=== PATIENT | female | born 1950 | race Caucasian/White ===

== ENCOUNTER 2017-04-29 13:44 | Observation (INO) ==
[2017-04-29 14:50] LABS: Basophils % 0.4 %; Eosinophils # 0.2 K/mcL (0.0-0.6); Eosinophils % 2.9 %; Hematocrit 44.3 % (35.3-44.9); Hemoglobin 15.1 g/dL (11.5-15.4); Immature Granulocytes % 0.3 % (0-4); Lymphocytes # 1.8 K/mcL (0.6-4.6); Lymphocytes % 25.6 %; Mean Corpuscular HGB Conc 34.1 g/dL (31.6-35.5); Mean Corpuscular Hemoglobin 28.9 pg (28.0-33.3); Mean Corpuscular Volume 84.7 fL (83.0-100.0); Mean Platelet Volume 9.6 fL (9.4-12.4); Monocytes # 0.7 K/mcL (0.0-1.3); Monocytes % 10.7 %; Neutrophils # 4.2 K/mcL (1.6-8.9); Platelet Count 224 K/mcL (140-400); Red Blood Count 5.23 M/mcL (3.82-4.97); Red Cell Distribution Width 13.2 % (11.5-14.5); Segmented Neutrophils % 60.1 %
[2017-04-29 14:56] LABS: Prothrombin Time 10.7 Seconds (9.4-12.1)
[2017-04-29 14:58] LABS: Activated Partial Thrombo Time 28.5 Seconds (26.0-36.0)
[2017-04-29 15:03] LABS: BUN/Creatinine Ratio 22 (6-26); Blood Urea Nitrogen 17 mg/dL (7-20); Carbon Dioxide 26 mEq/L (19-29); Chloride 100 mEq/L (98-109); Glucose 161 mg/dL (70-99); Osmolality,Calculated 287 (280-300); Potassium 4.1 mEq/L (3.5-4.5); Sodium 136 mEq/L (136-145); eGFR For African Americans > 60 (> 60); eGFR For Non-African Americans > 60 (> 60)
--- NOTE | 2017-04-29 15:31 | Emergency Department Note ---
START Narrative - START START: I examined this patient and my medical decision-making was reviewed with the emergency medicine resident. I agree with the documented findings, disposition and treatment plan as described except to the extent set forth below. Patient seen with emergency medicine resident Dr. Sherman Horn, Please see a copy of his note for details of the H&P, ED evaluation, management and disposition. I have independently evaluated the patient and confirmed appropriate portions of the history and physical exam. Briefly: 66-year-old female history quadruple bypass several cardiac stents presents with "total body burning" also some heartburn she does person, chest pain. Pain-free now. EKG shows nonspecific ST-T changes. Negative troponin. Patient was offered admission she accepted awaiting hospitalist call back. Provided 30 minutes of critical care services for this patient. Admission disposition pending
--- NOTE | 2017-04-29 15:33 | Emergency Department Note ---
Disposition Clinical Impression: Chest pain Qualifiers: Chest pain type: unspecified Qualified Code(s): R07.9 - Chest pain, unspecified Disposition: Admitted As Inpatient Condition: Good General Adult HPI - General Chief complaint: ED Chest Pain Stated complaint: CP Time Seen by Provider: 04/29/17 14:58 Source: patient Limitations: no limitations Nursing Notes Reviewed: Yes Vital Signs Reviewed: Yes - History of Present Illness HPI Narrative: 66-year-old female who reports she has had 2-3 days of intermittent feelings of heartburn and nausea. She reports that the last time that she has felt that was when she was having her heart attack. She has had a total of at least 2 heart attacks one of which required a quadruple bypass in the other multiple stents. She had similar symptoms at that time. She reports minimal symptoms right now. She does take aspirin and Plavix. Other medical problems include hypertension, hyperlipidemia, diabetes, hypothyroidism. She is not had a fever or a cough. She is not feeling short of breath. No diaphoresis. Pain Scale: 3 Consistency: intermittent Improves with: nothing Worsens with: nothing Associated symptoms: Reports: denies other symptoms Treatments Prior to Arrival: none - Related Data Home Medications Medication Instructions Recorded Confirmed Alendronate Sodium [Fosamax] 70 mg PO QWEEK 04/29/17 04/29/17 Aspirin Enteric Coated [Aspirin EC] 81 mg PO DAILY 04/29/17 04/29/17 Cholecalciferol (Vitamin D3) 2,000 unit PO DAILY 04/29/17 04/29/17 [Vitamin D] Cinnamon Bark [Cinnamon] 2,000 mg PO BID 04/29/17 04/29/17 Clopidogrel [Plavix] 75 mg PO DAILY 04/29/17 04/29/17 Escitalopram Oxalate 5 mg PO DAILY 04/29/17 04/29/17 Levothyroxine [Synthroid] 112 mcg PO 0630 04/29/17 04/29/17 Lisinopril [Zestril] 20 mg PO BID 04/29/17 04/29/17 Metformin HCl [Metformin HCl ER] 1,000 mg PO BID 04/29/17 04/29/17 Nitroglycerin [Nitrostat] 0.4 mg SL Q5M PRN 04/29/17 04/29/17 Sotalol HCl [Betapace] 120 mg PO Q12H 04/29/17 04/29/17 amLODIPine [Norvasc] 5 mg PO BID 04/29/17 04/29/17 hydroCHLOROthiazide 25 mg PO DAILY 04/29/17 04/29/17 [Hydrochlorothiazide] Allergies Allergy/AdvReac Type Severity Reaction Status Date / Time No Known Allergies Allergy Verified 04/29/17 13:47 All systems ED: reviewed and negative except as stated. Constitutional: Denies: fever ENT ED: Denies: throat pain Cardiovascular: Reports: chest pain Respiratory: Denies: cough, dyspnea Gastrointestinal: Denies: abdominal pain Musculoskeletal: Denies: back pain Integumentary: Denies: rash Neurological: Denies: headache Endocrine: Denies: fatigue Past Medical History - Past Medical History Medical history: Reports: atrial fibrillation, diabetes, hyperlipidemia, hypertension, myocardial infarction, renal disease, thyroid disease, other Psychiatric history: Reports: anxiety, depression - Social History Smoking Status: Never smoker Smokeless Tobacco Status: No Alcohol use: Reports: none Drug use: Reports: none Physical Exam - General Limitations: no limitations General appearance: alert - Head Head exam: atraumatic - Eye Eye exam: Present: normal appearance, PERRL - ENT ENT exam: normal exam, normal oropharynx - Neck Neck exam: Present: normal inspection - Chest Chest inspection: Present: normal inspection - Respiratory Respiratory exam: Present: normal lung sounds bilaterally. Absent: respiratory distress - Cardiovascular Cardiovascular exam: Present: regular rate, normal rhythm - Abdominal Exam Abdominal exam: Present: soft, Non-Tender - Extremities Exam Extremities exam: Present: normal inspection - Neurological Exam Neurological exam: Present: alert, oriented X3 - Psychiatric Psychiatric exam: Present: normal affect, normal mood - Skin Skin exam: Present: warm, dry Course Course Narrative: EKG is normal sinus rhythm without specific ST or T-wave changes. There is no old EKG to compare this to. Lab work and troponin are negative. Due to her symptoms being similar to prior we will go ahead and admit for chest pain rule out. Admitted by Dr Irizarry Vital Signs Temperature 98.5 F 04/29/17 13:46 Pulse Rate 63 04/29/17 13:46 Respiratory Rate 18 04/29/17 13:46 Blood Pressure 185/93 04/29/17 13:46 O2 Sat by Pulse Oximetry 97 04/29/17 13:46 Temperature 98.5 F 04/29/17 13:46 Pulse Rate 61 04/29/17 16:12 Respiratory Rate 14 04/29/17 16:12 Blood Pressure 161/94 04/29/17 16:12 O2 Sat by Pulse Oximetry 97 04/29/17 16:12 Oxygen Delivery Oxygen Delivery Room Air Medical Decision Making - Medical Records Medical records reviewed: Yes I reviewed the patient's medical records. - Lab Data Lab results reviewed: Yes I reviewed the patient's lab results. Result diagrams: 04/29/17 14:42 04/29/17 14:42 Lab Results 04/29/17 04/29/17 04/29/17 Range/Units 14:42 14:42 14:42 WBC 6.9 (4.3-11.1) K/mcL RBC 5.23 H (3.82-4.97) M/mcL Hgb 15.1 (11.5-15.4) g/dL Hct 44.3 (35.3-44.9) % MCV 84.7 (83.0-100.0) fL MCH 28.9 (28.0-33.3) pg MCHC 34.1 (31.6-35.5) g/dL RDW 13.2 (11.5-14.5) % Plt Count 224 (140-400) K/mcL MPV 9.6 (9.4-12.4) fL Immature Gran % 0.3 (0-4) % Seg Neutrophils % 60.1 % Lymphocytes % 25.6 % Monocytes % 10.7 % Eosinophils % 2.9 % Basophils % 0.4 % Neutrophils # 4.2 (1.6-8.9) K/mcL Lymphocytes # 1.8 (0.6-4.6) K/mcL Monocytes # 0.7 (0.0-1.3) K/mcL Eosinophils # 0.2 (0.0-0.6) K/mcL Basophils # 0.0 (0.0-0.2) K/mcL PT 10.7 (9.4-12.1) Seconds INR 1.0 APTT 28.5 (26.0-36.0) Seconds Sodium (136-145) mEq/L Potassium (3.5-4.5) mEq/L Chloride (98-109) mEq/L Carbon Dioxide (19-29) mEq/L BUN (7-20) mg/dL Creatinine (0.57-1.11) mg/dL Est GFR ( Amer) (> 60) Est GFR (Non-Af Amer) (> 60) BUN/Creatinine Ratio (6-26) Glucose (70-99) mg/dL Calculated Osmolality (280-300) Calcium (8.6-10.8) mg/dL Troponin I (0-0.03) ng/mL B-Natriuretic Peptide 199 H (0-100) pg/mL 04/29/17 04/29/17 Range/Units 14:42 14:42 WBC (4.3-11.1) K/mcL RBC (3.82-4.97) M/mcL Hgb (11.5-15.4) g/dL Hct (35.3-44.9) % MCV (83.0-100.0) fL MCH (28.0-33.3) pg MCHC (31.6-35.5) g/dL RDW (11.5-14.5) % Plt Count (140-400) K/mcL MPV (9.4-12.4) fL Immature Gran % (0-4) % Seg Neutrophils % % Lymphocytes % % Monocytes % % Eosinophils % % Basophils % % Neutrophils # (1.6-8.9) K/mcL Lymphocytes # (0.6-4.6) K/mcL Monocytes # (0.0-1.3) K/mcL Eosinophils # (0.0-0.6) K/mcL Basophils # (0.0-0.2) K/mcL PT (9.4-12.1) Seconds INR APTT (26.0-36.0) Seconds Sodium 136 (136-145) mEq/L Potassium 4.1 (3.5-4.5) mEq/L Chloride 100 (98-109) mEq/L Carbon Dioxide 26 (19-29) mEq/L BUN 17 (7-20) mg/dL Creatinine 0.77 (0.57-1.11) mg/dL Est GFR ( Amer) > 60 (> 60) Est GFR (Non-Af Amer) > 60 (> 60) BUN/Creatinine Ratio 22 (6-26) Glucose 161 H (70-99) mg/dL Calculated Osmolality 287 (280-300) Calcium 10.0 (8.6-10.8) mg/dL Troponin I 0.00 (0-0.03) ng/mL B-Natriuretic Peptide (0-100) pg/mL - Radiology Data Radiology results reviewed: Yes I reviewed the patient's radiology results. - EKG Data EKG #1 EKG attestation: Yes I reviewed and interpreted this EKG. EKG shows normal: sinus rhythm Rate: normal Rhythm: NSR Frederic/QRS: normal Interpretation: no acute changes
--- NOTE | 2017-04-29 17:05 | Event Note ---
Date of Encounter: 04/29/17 Time of Encounter: 17:05 Patient seen and examined with nurse practitioner. rule Out coronary syndrome. Initial troponin normal, EKG shows no ST segment shifts.
[2017-04-29] MEDS ORDERED: Ondansetron 4 MG/2 ML VIAL IVP PRN (18:39)
[2017-04-29] MEDS ORDERED: Naloxone 0.4 MG/ML INJ IVP PRN (18:39)
[2017-04-29] MEDS ORDERED: *HR* HYDROcodone/Acet 5/325 mg TABLET PO PRN (18:39)
[2017-04-29] MEDS ORDERED: Acetaminophen 325 MG TABLET PO PRN (18:39)
[2017-04-29] MEDS ORDERED: Nitroglycerin 0.4 MG TAB.SUBL SL PRN (18:42)
[2017-04-29] MEDS ORDERED: D5% in Water 1,000 ML IVC PRN (18:44)
[2017-04-29] MEDS ORDERED: *HR* Dextrose 50 % in Water (Syg) 50 ML SYRINGE IVP PRN (18:44)
[2017-04-29] MEDS ORDERED: Dextrose Gel 15 GM PO PRN ×2 (18:44)
[2017-04-29] MEDS ORDERED: NON-FORMULARY MEDICATION 1 EACH EACH (Alendronate Sodium [Fosamax] 70 MG) PO SCH (18:45)
--- NOTE | 2017-04-29 19:35 | Internal Med History&Physical ---
Date of Encounter: 04/29/17 Time of Encounter: 17:00 Assessment and Plan (1) Chest pain Current visit: Yes Status: Acute Pt. presents w/discomfort in her chest for the past 2-3 days that she describes as a burning sensation down her bilateral arms chest and bilateral legs down to her feet. States she has intermittent feelings of heartburn and nausea as well. She reports similar symptoms during her previous heart attacks. Patient has a history of stents 8, one balloon procedure, and quadruple bypass. Initial troponin 0.00. Trend x2. Continuous cardiac telemetry. Risk factors include hx of atrial fibrillation, diabetes, HLD, HTN, and previous HI. Denies smoking. Echocardiogram ordered. Will consider cardiology consult based on f/u troponins and Echo results. Monitor pt. closely for signs of increasing cardiac and/or respiratory distress. Continue patient's Plavix, lisinopril, hydrochlorothiazide, Norvasc, Betapace, and aspirin therapy. Pt. at high risk for cardiac event based on current sx, previous hx, and risk factors. Observation. Qualifiers: Chest pain type: other chest pain Qualified Code(s): R07.89 - Other chest pain; R07.8 - Other chest pain (2) History of atrial fibrillation Current visit: Yes Status: Chronic Hx of paroxysmal atrial fibrillation. Stable. Currently in sinus rhythm. Repeat EKG. Continue Betapace. Continuous cardiac telemetry. (3) Diabetes Current visit: Yes Status: Chronic Hx of chronic diabetes managed with oral antihyperglycemic medications. BG checks before meals at bedtime. A1c in a.m. labs. Will administer low-dose correction insulin sliding scale and hypoglycemic protocol. Qualifiers: Diabetes mellitus type: type 2 Diabetes mellitus complication status: with unspecified complications Diabetes mellitus termite treater insulin use: without residential use Qualified Code(s): E11.8 - Type 2 diabetes mellitus with unspecified complications (4) HLD (hyperlipidemia) Current visit: Yes Status: Chronic Hx of chronic HLD. Pt. reports allergy to all statins and red rice yeast ( extreme leg pain). Lipid panel in a.m. labs. Discussed flush-free niacin and fish oil alternatives w/instruction to discuss w/her PCP. Qualifiers: Hyperlipidemia type: pure hypercholesterolemia Qualified Code(s): E78.00 - Pure hypercholesterolemia, unspecified; E78.0 - Pure hypercholesterolemia (5) HTN (hypertension) Current visit: Yes Status: Chronic Hx of chronic HTN. Monitor patient and vital signs. Continue patient's lisinopril, hydrochlorothiazide, and Norvasc. Qualifiers: Hypertension type: essential hypertension Qualified Code(s): I10 - Essential (primary) hypertension (6) Thyroid disease Current visit: Yes Status: Chronic Hx chronic thyroid disease. Continue patient's Synthroid. (7) DVT prophylaxis Current visit: Yes Status: Acute Heparin 5,000 units SQ Q8 for DVT prophylaxis. Internal Medicine - H&P: HPI Chief complaint: Chest pain Admitted From: Emergency Dept Plans for Post Hospital Care: Home History of present illness: Ms. Lopez is a 66 year old female with medical history of previous atrial fibrillation, diabetes controlled with oral anti-hyperglycemics, hyperlipidemia , hypertension, previous HI, chronic kidney disease, and thyroid disease presents from the ED with chief complaint of discomfort in her chest for the past 2-3 days that she describes as a burning sensation down her bilateral arms chest and bilateral legs down to her feet. States she has intermittent feelings of heartburn and nausea as well. She reports similar symptoms during her previous heart attacks. Patient has a history of stents 8, one balloon procedure, and quadruple bypass. Patient denies recent illness, fever, chills, nausea, vomiting, unusual bleeding, changes in vision, cough, chest congestion, abdominal pain, diarrhea, constipation, shortness of breath, diaphoresis, headache, fatigue, lightheadedness, dizziness, pre-syncope, or syncope. Past Med Surg Social Fam HX - Past Medical History Source: patient, old records reviewed, obtained from family Medical history: atrial fibrillation, diabetes, hyperlipidemia, hypertension, myocardial infarction, renal disease, thyroid disease, other Psychiatric history: anxiety, depression - Past Surgical History Surgical History: angioplasty/stent (x8), coronary bypass (CABG), hysterectomy - Social History Smoking Status: Never smoker Smokeless Tobacco Status: No Alcohol use: none Drug use: none Current living situation: Home, With Family Activity Level: Independent ambulation Recent Out of Country Travel Within the Last 8 Weeks: No Exposure or Possible Exposure to Illness During Travel: No - Family History Father Race: Family Member Ethnicity: Non- Living Status: Age at : 74 Cause of : Stroke Hx Family Cardiac Disorders: Yes (Strokes) Mother Race: Family Member Ethnicity: Non- Living Status: Age at : 66 Cause of : CHF Hx Family Cardiac Disorders: Yes (CHF, CAD, HTN) Hx Family Endocrine Disorder: Yes (DM) Brother Race: Family Member Ethnicity: Non- Living Status: Still Living Hx Family Cardiac Disorders: Yes (CAD, TIAs, Stent placement) Internal Medicine - H&P: Meds Alendronate Sodium [Fosamax] 70 mg PO QWEEK 04/29/17 [History] Aspirin Enteric Coated [Aspirin EC] 81 mg PO DAILY 04/29/17 [History] Cholecalciferol (Vitamin D3) [Vitamin D] 2,000 unit PO DAILY 04/29/17 [History] Cinnamon Bark [Cinnamon] 2,000 mg PO BID 04/29/17 [History] Clopidogrel [Plavix] 75 mg PO DAILY 04/29/17 [History] Escitalopram Oxalate 5 mg PO DAILY 04/29/17 [History] Levothyroxine [Synthroid] 112 mcg PO 0630 04/29/17 [History] Lisinopril [Zestril] 20 mg PO BID 04/29/17 [History] Metformin HCl [Metformin HCl ER] 1,000 mg PO BID 04/29/17 [History] Nitroglycerin [Nitrostat] 0.4 mg SL Q5M PRN 04/29/17 [History] Sotalol HCl [Betapace] 120 mg PO Q12H 04/29/17 [History] amLODIPine [Norvasc] 5 mg PO BID 04/29/17 [History] hydroCHLOROthiazide [Hydrochlorothiazide] 25 mg PO DAILY 04/29/17 [History] 3 Allergy/AdvReac Type Severity Reaction Status Date / Time No Known Allergies Allergy Verified 04/29/17 13:47 All Systems PM: A 10-system review of systems was performed and is negative for pertinent findings except as documented above in the HPI. - Constitutional Constitutional: no chills, no fever(s), no night sweats - EENT Eyes: no change in vision, no discharge, no pain, no photophobia Ears: no ear discharge, no ear pain, no tinnitus Nose, mouth and throat: no dysphagia, no nasal discharge, no neck pain, no sore throat - Breasts Breasts: as per HPI - Cardiovascular Cardiovascular ROS IM: as per HPI, chest pain (Described as a burning sensation that begins in chest and radiates down bilateral arms, chest, and bilateral legs.), irregular heart rhythm - Respiratory Respiratory: no cough, no dyspnea, no wheezing, no excessive phlegm production - Gastrointestinal Gastrointestinal: no abdominal pain, no diarrhea, no hematemesis, no hematochezia, no melena, no nausea, no vomiting - Genitourinary Genitourinary: no change in urinary stream, no dysuria, no flank pain, no hematuria Menstruation: as per HPI, post hysterectomy - Musculoskeletal Musculoskeletal ROS IM: no numbness, no tingling - Integumentary Integumentary IM: no rash, no unusual bruising - Neurological Neurological ROS: as per HPI, other (Burning sensation down bilateral arms, legs , and trunk.), no confusion, no convulsions, no focal weakness, no numbness, no tingling, no tremor(s) - Psychiatric Psychiatric: as per HPI - Endocrine Endocrine IM: as per HPI - Hematologic/Lymphatic Hematologic/Lymphatic: no easy bruising - Allergic/Immunologic Allergic/Immunologic: as per HPI - Constitutional Vitals: Temp Pulse Resp BP Pulse Ox 99 F 62 16 136/80 96 04/29/17 18:41 04/29/17 18:41 04/29/17 18:41 04/29/17 18:41 04/29/17 18:41 General appearance: Present: cooperative, A&O X 3, pleasant, no acute distress, obese, answers questions appropriately - Head Head exam: Present: atraumatic, normocephalic - Eye Eye exam: Present: PERRL, conjuntiva pink, sclera anicteric Pupils: Present: PERRL - ENT ENT exam: Present: normal exam, normal external ear exam - Neck Neck exam general surgery: Present: normal inspection, supple, trachea midline. Absent: lymphadenopathy - Respiratory Respiratory exam: Present: CTAB. Absent: accessory muscle use, rales, rhonchi, wheezes - Cardiovascular Cardiovascular exam: Present: irregular rhythm - GI/Abdominal GI/Abdominal exam: Present: normal bowel sounds, soft, no peritoneal signs. Absent: distended, tenderness - Rectal Rectal exam: Present: deferred - Additional comments: exam deferred. - Extremities Exam Extremities exam: Present: warm, radial pulses palpable and symmetrical. Absent : calf tenderness, cyanotic, pedal edema - Back Exam Back exam: Present: normal inspection - Neurological Exam Neurological exam: Present: CN II-XII intact, oriented X3, no focal deficits. Absent: pronater drift, facial droop, speech deficit - Psychiatric Psychiatric exam: Present: normal affect, normal mood - Skin Skin exam: Present: dry, intact Internal Med - H&P Results - Labs CBC & Chem 7: 04/29/17 14:42 04/29/17 14:42 - EKG Data EKG shows normal: sinus rhythm - EKG Data Prior EKG available for review: no EKG comments: 04/29/17 19:41 EKG dated 04/29/17 shows sinus rhythm with nonspecific T-wave abnormality. Borderline ECG. - Diagnostic Studies Chest x-ray Additional comments: Impressions Chest X-Ray 04/29/17 13:52 IMPRESSION: The chest appears clear without acute cardiopulmonary process. D/ / Aldair Grdier MD / Aldair Grider MD Interpreting Provider: Aldair Grider MD
[2017-04-29] MEDS: Pantoprazole 40 MG VIAL IVP SCH (20:43)
[2017-04-29] MEDS: Lisinopril 20 MG TABLET PO SCH (20:44)
[2017-04-29] MEDS: amLODIPine 5 MG TABLET PO SCH (20:44)
[2017-04-29] MEDS ORDERED: Insulin LISPRO 300 UNITS/3 ML VIAL SQ SCH (21:00)
[2017-04-29] MEDS: *HR* Heparin 5,000 UNIT/ML VIAL SQ SCH (22:25)
[2017-04-30 03:18] LABS: Basophils % 0.5 %; Eosinophils # 0.3 K/mcL (0.0-0.6); Eosinophils % 3.9 %; Hemoglobin 14.4 g/dL (11.5-15.4); Immature Granulocytes % 0.3 % (0-4); Lymphocytes # 2.6 K/mcL (0.6-4.6); Mean Corpuscular HGB Conc 35.1 g/dL (31.6-35.5); Mean Corpuscular Hemoglobin 29.2 pg (28.0-33.3); Mean Corpuscular Volume 83.2 fL (83.0-100.0); Mean Platelet Volume 9.9 fL (9.4-12.4); Monocytes # 0.8 K/mcL (0.0-1.3); Monocytes % 11.8 %; Neutrophils # 2.7 K/mcL (1.6-8.9); Platelet Count 189 K/mcL (140-400); Red Blood Count 4.93 M/mcL (3.82-4.97); Red Cell Distribution Width 13.3 % (11.5-14.5); Segmented Neutrophils % 42.5 %
[2017-04-30 03:30] LABS: Hemoglobin A1C 7.8 %
[2017-04-30 03:42] LABS: Alanine Aminotransferase 19 Units/L (0-55); Albumin 3.5 g/dL (3.5-5.0); Alkaline Phosphatase 71 Units/L (38-126); Aspartate Amino Transferase 18 Units/L (5-34); BUN/Creatinine Ratio 18 (6-26); Bilirubin,Total 0.4 mg/dL (0.2-1.2); Blood Urea Nitrogen 14 mg/dL (7-20); Calcium 9.4 mg/dL (8.6-10.8); Carbon Dioxide 26 mEq/L (19-29); Chloride 102 mEq/L (98-109); Chol/HDL Ratio 7.6 (0-4.9); Cholesterol 250 mg/dL (< 200); Globulin 3.5 g/dL (2.4-3.5); Glucose 167 mg/dL (70-99); HDL Cholesterol 33 mg/dL (40-59); LDL Cholesterol,Calculated 157 mg/dL (0-99); Magnesium 1.7 mg/dL (1.6-2.6); Osmolality,Calculated 290 (280-300); Potassium 3.6 mEq/L (3.5-4.5); Sodium 138 mEq/L (136-145); Triglycerides 301 mg/dL (< 150); eGFR For African Americans > 60 (> 60); eGFR For Non-African Americans > 60 (> 60)
[2017-04-30] MEDS: *HR* Heparin 5,000 UNIT/ML VIAL SQ SCH ×2 (05:16→13:34)
[2017-04-30] MEDS: Lisinopril 20 MG TABLET PO SCH (08:44)
[2017-04-30] MEDS: Pantoprazole 40 MG VIAL IVP SCH (08:44)
[2017-04-30] MEDS: amLODIPine 5 MG TABLET PO SCH (08:44)
[2017-04-30] MEDS: Insulin LISPRO 300 UNITS/3 ML VIAL SQ SCH ×3 (08:45→16:52)
[2017-04-30] MEDS ORDERED: Cholecalciferol (D-3) 1,000 UNIT TABLET PO SCH (09:00)
[2017-04-30] MEDS ORDERED: hydroCHLOROthiazide 25 MG TABLET PO SCH (09:00)
[2017-04-30] MEDS ORDERED: Aspirin Enteric Coated 81 MG Tablet PO SCH (09:00)
[2017-04-30] MEDS ORDERED: *HR* Heparin 5,000 UNIT/ML VIAL ONE (13:32)
--- NOTE | 2017-04-30 13:44 | Internal Med Progress Note ---
Date of Encounter: 04/30/17 Time of Encounter: 08:30 - Assessment and plan (1) CAD (coronary artery disease) Current Visit: Yes Status: Acute Assessment and plan: Chiquita Lopez is a 66 y/o female with PMH CAD, diabetes, hypertension, hypothyroidism and A. fib who presented to [facility] on 04/29 complaints of chest pain. She was placed in observation status for cardiac evaluation and further workup and treatment. 1. CAD: has significant cardiac history with multiple stents and bypass. Last [facility] 01/2016 with 4 stents at that time and subsequent retroperitoneal bleed. Now with burning sensation in chest that is similar to previous cardiac presentations. Chest pain resolved on its own. Serial troponins negative. EKG without acute ST changes. Cardiology consulted with significant cardiac history. Continue home ASA, Plavix. LDL 157, add statin. Echo pending. 2. Irregular heart rhythm: Patient report his history. Not A. fib. Continue home sotalol. 3. Hypertension: per hx. BP controlled. Continue home BP medication. Monitor BP and titrate PRN 4. Diabetes: per hx. Hgb A1c 7.8%. Holding oral hypoglycemics. SSI. Monitor blood sugar and titrate PRN 5. Hypothyroidism: per hx. continue home levothyroxine. TSH pending 6. DVT prophylaxis: Heparin Qualifiers: Qualified Code(s): I25.10 - Atherosclerotic heart disease of sun'aq coronary artery without angina pectoris (2) Hypothyroidism Current Visit: Yes Status: Acute Qualifiers: Hypothyroidism type: acquired Qualified Code(s): E03.9 - Hypothyroidism, unspecified (3) Diabetes Current Visit: Yes Status: Chronic Qualifiers: Diabetes mellitus type: type 2 Diabetes mellitus complication status: with unspecified complications Diabetes mellitus shelter insulin use: without remote computer terminal operator use Qualified Code(s): E11.8 - Type 2 diabetes mellitus with unspecified complications - Subjective Interval history: Seen and examined at bedside. Patient is new to me, information obtained from chart review and patient report. Patient says she feels well today, uneventful night. No chest pain recurrence, no shortness of breath. - Constitutional Vitals: Temp Pulse Resp BP Pulse Ox 98.1 F 74 16 147/83 95 04/30/17 12:00 04/30/17 12:00 04/30/17 12:00 04/30/17 12:00 04/30/17 12:00 General appearance: Present: cooperative, A&O X 3, pleasant, no acute distress, obese, answers questions appropriately - Head Head exam: Present: atraumatic, normocephalic - Eye Eye exam: Present: PERRL, conjuntiva pink, sclera anicteric Pupils: Present: PERRL - Neck Neck exam general surgery: Present: supple, trachea midline. Absent: lymphadenopathy - Respiratory Respiratory exam: Present: CTAB. Absent: accessory muscle use, rales, rhonchi, wheezes - Cardiovascular Cardiovascular exam: Present: RRR, +S1, +S2. Absent: diastolic murmur, gallop, rubs, systolic murmur - GI/Abdominal GI/Abdominal exam: Present: normal bowel sounds, soft, no peritoneal signs. Absent: distended, tenderness - Extremities Exam Extremities exam: Present: warm, radial pulses palpable and symmetrical. Absent : calf tenderness, cyanotic, pedal edema - Neurological Exam Neurological exam: Present: CN II-XII intact, oriented X3, no focal deficits. Absent: pronater drift, facial droop, speech deficit - Skin Skin exam: Present: dry, intact Internal Medicine: Result - Labs CBC & Chem 7: 04/30/17 02:51 04/30/17 02:51 Labs: Short CBC 04/30/17 Range/Units 02:51 WBC 6.4 (4.3-11.1) K/mcL Hgb 14.4 (11.5-15.4) g/dL Hct 41.0 (35.3-44.9) % Plt Count 189 (140-400) K/mcL Neutrophils # 2.7 (1.6-8.9) K/mcL BMP 04/30/17 02:51 Sodium 138 Potassium 3.6 Chloride 102 Carbon Dioxide 26 BUN 14 Creatinine 0.77 Glucose 167 H Calcium 9.4 Cardiac Enzymes 04/29/17 04/30/17 Range/Units 21:05 02:51 Troponin I 0.00 0.00 (0-0.03) ng/mL Liver Function 04/30/17 Range/Units 02:51 Total Bilirubin 0.4 (0.2-1.2) mg/dL AST 18 (5-34) Units/L ALT 19 (0-55) Units/L Alkaline Phosphatase 71 (38-126) Units/L Albumin 3.5 (3.5-5.0) g/dL - ABG Interpretation ABG results: PT/INR, D-dimer PT 10.7 Seconds (9.4-12.1) 04/29/17 14:42 - Impressions Impressions Echocardiogram 04/30/17 07:30 Impressions: Sinus bradycardia with probable sinus arrhythmia. Heart rate 40-50's. LVEF 50-55%. Moderate left ventricular diastolic dysfunction. RV is mildly dilated with normal function. Mild mitral regurgitation. Moderately calcified aortic valve leaflets - no stenosis by Doppler but LVOT was not well interrogated. Mild tricuspid regurgitation. Mild pulmonic regurgitation. No pulmonary hypertension. Left Ventricular Wall Motion: Rest Echo Findings All wall segments showed normal motion. Findings: Study Quality * Technically adequate exam. ECG Findings * Sinus bradycardia. Heart rate 40-50's. Probably sinus arrhythmia. Left Ventricle * Moderate left ventricular diastolic dysfunction. * Normal LV size and wall thickness. * LVEF 50-55%. Right Ventricle * RV is mildly dilated with normal function. Left Atrium * Moderately dilated left atrium. Right Atrium * Mildly dilated right atrium. Mitral Valve * Normal mitral valve structure. * No mitral stenosis. * Mild mitral regurgitation. Aortic Valve * Trileaflet aortic valve. * Moderately calcified aortic valve leaflets. * Trace aortic regurgitation. * Normal Doppler velocity and gradient suggesting against the presence of aortic stenosis. However, LVOT was not well evaluated. Tricuspid Valve * Normal tricuspid valve structure. * Mild tricuspid regurgitation. * Estimated RA pressure is 3 mmHg. * Estimated RVSP is 19 mmHg. * No pulmonary hypertension. Pulmonic Valve * Pulmonic valve is not well visualized. * No pulmonic stenosis. * Mild pulmonic regurgitation. Pulmonary Artery * Pulmonary artery not well visualized. Aorta * Normally sized aortic root. Pericardium * There is no pericardial effusion present. Interatrial Septum * No evidence of PFO by color Doppler. IVC * Normal IVC dimensions and inspiratory collapse. Consult Discharge Plan - Plan Referrals: José Miguel Serrano [Non-Partnered Physician] - 05/05/17 2:00 pm
[2017-04-30 14:37] VITALS: BP 114/70
--- NOTE | 2017-04-30 14:37 | Cardiology Consult Note ---
Date of Encounter: 04/30/17 Time of Encounter: 14:00 Assessment and Plan (1) Chest pain Current Visit: Yes Status: Acute Per cardiology: -Admitted with chest "burning." -Chest pain atypical. Was lessened with exertion. Denies exertional chest pain. -Troponins negative x3. -ECG with no acute ischemic changes. -Denies current chest pain. -Will obtain records from previous cardiology work up at [place]. Qualifiers: Chest pain type: other chest pain Qualified Code(s): R07.89 - Other chest pain; R07.8 - Other chest pain (2) CAD (coronary artery disease) Current Visit: Yes Status: Chronic Per cardiology: -Known history of CAD s/p CABG and PCI. Patient reports 4 bypass grafts and 8 previous stents. -On asa, plavix, beta gilmer. Not on statin due to intolerant to statins. -Denies current chest pain. -TTE with LVEF 50-55%, moderate diastolic dysfunction, RV mildly dilated with normal function, mild MR, moderately calcified aortic leaflets, no aortic stenosis by doppler, mild TR, mild AL, all wall segments with normal motion. -Will obtain records from previous cardiac work up. -Of note, records state history of atrial fibrillation. Patient denies history of a.fib. WIll obtain previous cardiology records. Qualifiers: Coronary Disease-Associated Artery/Lesion type: unspecified vessel or lesion type [place] vs. transplanted heart: [place] heart Associated angina: with unspecified angina Qualified Code(s): I25.119 - Atherosclerotic heart disease of [place] coronary artery with unspecified angina pectoris (3) HLD (hyperlipidemia) Current Visit: Yes Status: Chronic Per cardiology: -Known hyperlipidemia. -Not on statin due to intolerant. -Triglycerides 301, cholesterol 250, LDL 157, HDL 33. Qualifiers: Hyperlipidemia type: pure hypercholesterolemia Qualified Code(s): E78.00 - Pure hypercholesterolemia, unspecified; E78.0 - Pure hypercholesterolemia Discussion w patient/family: The assessment and plan as outlined above was discussed with the patient and/or family members who expressed understanding and agreement. All questions were answered. Thank you for involving us in the care of your patient. Please call with any questions. Discussed and reviewed with . History of Present Illness Consult date: 04/30/17 Requesting physician: Keisha Real Consult reason: chest pain, Hx CAD Chief complaint: chest pain History of present illness: Ms. Lopez is a 66 year old female with a relevant past medical history of CAD s/p CABG and PCI, HTN, hyperlipidemia, DM, hypothyroidism, PVD, CHF. Patient denies history of atrial fibrillation. Patient presented to [facility] with complaints of chest "burning." Patient states pain started in abdomen, then radiated to chest. Patient states pain then went "shooting down both arms and both legs." Patient state this is similar to pain she has had previously that led to her coronary intervention. Patient denies aggravating factors. Patient states pain lessened with movement and exertion. Patient states nitroglycerin also lessened pain. Patient states she has chronic fatigue, but has not noticed an increase in fatigue. Patient denies shortness of breath. Of note, patient also reports she recently stopped her PPI due to concerns of side effects. Also , patient denies history of atrial fibrillation. Past Med Surg Social Fam HX - Past Medical History Attestation: Yes The following information was validated with the patient. Source: patient, old records reviewed, obtained from family Medical history: atrial fibrillation, diabetes, hyperlipidemia, hypertension, myocardial infarction, renal disease, thyroid disease, other Psychiatric history: anxiety, depression - Past Surgical History Surgical History: angioplasty/stent (x8), coronary bypass (CABG), hysterectomy - Social History Smoking Status: Never smoker Smokeless Tobacco Status: No Alcohol use: none Drug use: none - Family History Father Race: Family Member Ethnicity: Non- Living Status: Age at : 74 Cause of : Stroke Hx Family Cardiac Disorders: Yes (Strokes) Mother Race: Family Member Ethnicity: Non- Living Status: Age at : 66 Cause of : CHF Hx Family Cardiac Disorders: Yes (CHF, CAD, HTN) Hx Family Endocrine Disorder: Yes (DM) Brother Race: Family Member Ethnicity: Non- Living Status: Still Living Hx Family Cardiac Disorders: Yes (CAD, TIAs, Stent placement) Medications and Allergies Alendronate Sodium [Fosamax] 70 mg PO QWEEK 04/29/17 [History] Aspirin Enteric Coated [Aspirin EC] 81 mg PO DAILY 04/29/17 [History] Cholecalciferol (Vitamin D3) [Vitamin D] 2,000 unit PO DAILY 04/29/17 [History] Cinnamon Bark [Cinnamon] 2,000 mg PO BID 04/29/17 [History] Clopidogrel [Plavix] 75 mg PO DAILY 04/29/17 [History] Escitalopram Oxalate 5 mg PO DAILY 04/29/17 [History] Levothyroxine [Synthroid] 112 mcg PO 0630 04/29/17 [History] Lisinopril [Zestril] 20 mg PO BID 04/29/17 [History] Metformin HCl [Metformin HCl ER] 1,000 mg PO BID 04/29/17 [History] Nitroglycerin [Nitrostat] 0.4 mg SL Q5M PRN 04/29/17 [History] Sotalol HCl [Betapace] 120 mg PO Q12H 04/29/17 [History] amLODIPine [Norvasc] 5 mg PO BID 04/29/17 [History] hydroCHLOROthiazide [Hydrochlorothiazide] 25 mg PO DAILY 04/29/17 [History] 3 Allergy/AdvReac Type Severity Reaction Status Date / Time No Known Allergies Allergy Verified 04/29/17 13:47 All Systems Review: A 10-system review of systems was performed and is negative for pertinent findings except as documented above in the HPI. - Cardiovascular Cardiovascular: as per HPI, chest pain at rest Physical Examination Vital Signs, Last 4 Hours Temp Pulse Resp BP Pulse Ox 04/30/17 12:00 98.1 F 74 16 147/83 95 General: Conversant, No Apparent Distress HEENT: Atraumatic, Normocephaly, Mucus Membranes Moist Neck: No JVD, Normal carotid pulses Cardiac: Reg Rate and Rhythm, No Murmur Lungs: Normal Breath Sounds, No Wheeze, Rales, Rhonchi Neuro: Alert and responsive, No focal deficits noted Abdomen: Soft, Non-Tender Skin: No rashes noted on visualized skin Musculoskeletal: No Chest Wall Tenderness Extremities: No Clubbing, No Cyanosis, No Edema, Normal Pulses Results 04/30/17 02:51 04/30/17 02:51 Lab Results Impressions Echocardiogram 04/30/17 07:30 Impressions: Sinus bradycardia with probable sinus arrhythmia. Heart rate 40-50's. LVEF 50-55%. Moderate left ventricular diastolic dysfunction. RV is mildly dilated with normal function. Mild mitral regurgitation. Moderately calcified aortic valve leaflets - no stenosis by Doppler but LVOT was not well interrogated. Mild tricuspid regurgitation. Mild pulmonic regurgitation. No pulmonary hypertension. Left Ventricular Wall Motion: Rest Echo Findings All wall segments showed normal motion. Findings: Study Quality * Technically adequate exam. ECG Findings * Sinus bradycardia. Heart rate 40-50's. Probably sinus arrhythmia. Left Ventricle * Moderate left ventricular diastolic dysfunction. * Normal LV size and wall thickness. * LVEF 50-55%. Right Ventricle * RV is mildly dilated with normal function. Left Atrium * Moderately dilated left atrium. Right Atrium * Mildly dilated right atrium. Mitral Valve * Normal mitral valve structure. * No mitral stenosis. * Mild mitral regurgitation. Aortic Valve * Trileaflet aortic valve. * Moderately calcified aortic valve leaflets. * Trace aortic regurgitation. * Normal Doppler velocity and gradient suggesting against the presence of aortic stenosis. However, LVOT was not well evaluated. Tricuspid Valve * Normal tricuspid valve structure. * Mild tricuspid regurgitation. * Estimated RA pressure is 3 mmHg. * Estimated RVSP is 19 mmHg. * No pulmonary hypertension. Pulmonic Valve * Pulmonic valve is not well visualized. * No pulmonic stenosis. * Mild pulmonic regurgitation. Pulmonary Artery * Pulmonary artery not well visualized. Aorta * Normally sized aortic root. Pericardium * There is no pericardial effusion present. Interatrial Septum * No evidence of PFO by color Doppler. IVC * Normal IVC dimensions and inspiratory collapse. Active Medications Acetaminophen (Tylenol) 650 mg PO Q6HR PRN PRN Reason: Mild Pain (1-3) Stop: 10/29/17 18:40 Last Admin: 04/29/17 22:24 Dose: 650 mg Hydrocodone Bitart/Acetaminophen ([place] 5-325 Mg) 1 tab PO Q4HR PRN PRN Reason: Moderate Pain (4-6) Stop: 10/29/17 18:40 Amlodipine Besylate (Norvasc) 5 mg PO BID [facility] PRN Reason: Protocol Stop: 10/29/17 21:01 Last Admin: 04/30/17 08:44 Dose: 5 mg Aspirin (Aspirin Ec) 81 mg PO DAILY [facility] Stop: 10/30/17 09:01 Last Admin: 04/30/17 08:44 Dose: 81 mg Clopidogrel Bisulfate (Plavix) 75 mg PO DAILY [facility] Stop: 10/30/17 09:01 Last Admin: 04/30/17 08:44 Dose: 75 mg Dextrose/Water (Dextrose 50% (Syg)) 25 ml IVP AD PRN PRN Reason: Hypoglycemia Stop: 10/29/17 18:45 Escitalopram Oxalate (Lexapro) 5 mg PO HS [facility] Stop: 10/29/17 21:01 Last Admin: 04/29/17 22:24 Dose: 5 mg Glucagon (Glucagen) 1 mg IM ONCE PRN PRN Reason: Hypoglycemia Stop: 10/29/17 18:45 Glucose (Gluctose) 15 gm PO ONCE PRN PRN Reason: Hypoglycemia Stop: 10/29/17 18:45 Glucose (Gluctose) 30 gm PO ONCE PRN PRN Reason: Hypoglycemia Stop: 10/29/17 18:45 Heparin Sodium (Porcine) (Heparin) 5,000 unit SQ Q8HCO [facility] Stop: 10/29/17 22:01 Last Admin: 04/30/17 13:34 Dose: 5,000 unit Hydrochlorothiazide (Hydrochlorothiazide) 25 mg PO DAILY [facility] PRN Reason: Protocol Stop: 10/30/17 09:01 Last Admin: 04/30/17 08:45 Dose: 25 mg Dextrose (Dextrose 5%) 1,000 mls @ 100 mls/hr IVC .Q10H PRN PRN Reason: HYPOGLYCEMIA Stop: 10/29/17 18:45 Insulin Human Lispro (Humalog) 0 units SQ TIDAC [facility] PRN Reason: Protocol Stop: 10/30/17 07:31 Last Admin: 04/30/17 11:51 Dose: 4 units Insulin Human Lispro (Humalog) 0 units SQ HS [facility] PRN Reason: Protocol Stop: 10/29/17 21:01 Last Admin: 04/29/17 21:00 Dose: 3 units Levothyroxine Sodium (Synthroid) 112 mcg PO 0630 [facility] Stop: 10/30/17 06:31 Last Admin: 04/30/17 05:15 Dose: 112 mcg Lisinopril (Zestril) 20 mg PO BID [facility] PRN Reason: Protocol Stop: 10/29/17 21:01 Last Admin: 04/30/17 08:44 Dose: 20 mg Naloxone HCl (Narcan) 0.4 mg IVP Q2MIN PRN PRN Reason: Opioid Reversal Stop: 10/29/17 18:40 Nitroglycerin (Nitroglycerin) 0.4 mg SL Q5M PRN PRN Reason: Chest Pain Stop: 10/29/17 18:43 Ondansetron HCl (Zofran) 4 mg IVP Q8HR PRN PRN Reason: Nausea And Vomiting Stop: 10/29/17 18:40 Pantoprazole Sodium (Protonix) 40 mg IVP DAILY [facility] Stop: 10/29/17 19:01 Last Admin: 04/30/17 08:44 Dose: 40 mg Sotalol HCl (Betapace) 120 mg PO Q12HR [facility] Stop: 10/29/17 18:46 Last Admin: 04/30/17 05:14 Dose: 120 mg Vitamin D (Vitamin D) 1,000 unit PO DAILY [facility] Stop: 10/30/17 09:01 Last Admin: 04/30/17 08:44 Dose: 1,000 unit Laboratory Tests 04/29/17 04/29/17 04/30/17 14:42 21:05 02:51 Hgb Creatinine Troponin I 0.00 0.00 0.00 Triglycerides Cholesterol LDL Cholesterol, Calc HDL Cholesterol 04/30/17 04/30/17 02:51 02:51 Hgb 14.4 Creatinine 0.77 Troponin I Triglycerides 301 H Cholesterol 250 H LDL Cholesterol, Calc 157 H HDL Cholesterol 33 L - Imaging and Cardiology Chest Xray: report reviewed Echo: report reviewed - EKG Interpretation EKG results cardiology: personally reviewed (ECG with sinus rhythm, HR 62.), other (Telemetry reviewed with average HR previous 12 hours noted to be 62, sinus rhythm. PVCs and PACs noted.) Consult Discharge Plan - Plan Referrals: José Miguel Serrano [Non-Partnered Physician] - 05/05/17 2:00 pm
--- NOTE | 2017-04-30 16:59 | Discharge Summary ---
Date of Encounter: 04/30/17 Time of Encounter: 16:59 - Discharge Diagnosis (1) CAD (coronary artery disease) Priority: Primary Status: Chronic Comments: Chiquita Lopez is a 66 y/o female with PMH CAD, diabetes, hypertension, hypothyroidism and A. fib who presented to [facility] on 04/29 complaints of chest pain. She was placed in observation status for cardiac evaluation and further workup and treatment. 1. CAD: has significant cardiac history with multiple stents and bypass. Last [facility] 01/2016 with 4 stents at that time and subsequent retroperitoneal bleed. Now with burning sensation in chest that is similar to previous cardiac presentations. Chest pain resolved on its own. Serial troponins negative. EKG without acute ST changes. Evaluated by cardiology who recommended inpatient stress test however patient declined. Continue home ASA, Plavix. Patient will follow-up with her primary manager interface Dr. Curry 2. Irregular heart rhythm: Patient report his history. Not A. fib. Continue home sotalol. 3. Hypertension: per hx. BP controlled. Continue home BP medication. 4. Diabetes: per hx. Hgb A1c 7.8%. Continue home diabetes medication regimen 5. Hypothyroidism: per hx. continue home levothyroxine. Qualifiers: Coronary Disease-Associated Artery/Lesion type: unspecified vessel or lesion type [place] vs. transplanted heart: [place] heart Associated angina: with unspecified angina Qualified Code(s): I25.119 - Atherosclerotic heart disease of [place] coronary artery with unspecified angina pectoris (2) Hypothyroidism Priority: Primary Status: Acute Qualifiers: Hypothyroidism type: acquired Qualified Code(s): E03.9 - Hypothyroidism, unspecified (3) Diabetes Priority: Primary Status: Chronic Qualifiers: Diabetes mellitus type: type 2 Diabetes mellitus complication status: with unspecified complications Diabetes mellitus correction insulin use: without terminal carman use Qualified Code(s): E11.8 - Type 2 diabetes mellitus with unspecified complications - Discharge Medications Prescriptions: Pantoprazole Sodium [Protonix] 40 mg PO DAILY #30 tablet.dr Rhodes Medications: Alendronate Sodium [Fosamax] 70 mg PO QWEEK 04/29/17 [History] Aspirin Enteric Coated [Aspirin EC] 81 mg PO DAILY 04/29/17 [History] Cholecalciferol (Vitamin D3) [Vitamin D3] 2,000 unit PO DAILY 04/29/17 [History] Cinnamon Bark [Cinnamon] 2,000 mg PO BID 04/29/17 [History] Clopidogrel [Plavix] 75 mg PO DAILY 04/29/17 [History] Escitalopram Oxalate 5 mg PO DAILY 04/29/17 [History] Levothyroxine [Synthroid] 112 mcg PO 0630 04/29/17 [History] Lisinopril [Zestril] 20 mg PO BID 04/29/17 [History] Metformin HCl [Metformin HCl ER] 1,000 mg PO BID 04/29/17 [History] Nitroglycerin [Nitrostat] 0.4 mg SL Q5M PRN 04/29/17 [History] Sotalol HCl [Betapace] 120 mg PO Q12H 04/29/17 [History] amLODIPine [Norvasc] 5 mg PO BID 04/29/17 [History] hydroCHLOROthiazide [Hydrochlorothiazide] 25 mg PO DAILY 04/29/17 [History] Pantoprazole Sodium [Protonix] 40 mg PO DAILY #30 tablet. 04/30/17 [Rx] Allergies/Adverse Reactions: 3 Allergy/AdvReac Type Severity Reaction Status Date / Time No Known Allergies Allergy Verified 04/29/17 13:47 Procedures/tests Complete & Pending: Procedures Performed prior 72 hours Category Date Time Status EV echocardiogram Routine Y 04/30/17 07:30 Completed Date of admission: 04/29/17 16:03 Primary care physician: PCP NONE Consults: 04/30/17 08:52 Consult to Cardiology [CONS] Routine Comment: Consulting Provider: Eduard Frias Reason for Consult: Has significant cardiac hx, follows with Dr. Curry. Presented with burning sensation to chest similar to previous cardiac events Call Completed: Yes Discharging clinician: Keisha Real Anticipated date of discharge: 04/30/17 - Patient Status Disposition: Home, Self-Care Condition: Good Functional capacity at discharge: independent ambulation Overall status at discharge: patient is back to baseline - Discharge Instructions Instructions: Pantoprazole (By mouth), Coronary Artery Disease (DC), Chest Pain (DC), Gastroesophageal Reflux Disease (GEN) Follow Up With: [facility] [Provider Group] (Office will call to make follow-up appt.) José Miguel Serrano [Non-Partnered Physician] - 05/05/17 2:00 pm - Diet and Activity Activity: increase activity as tolerated, resume usual activities as tolerated Diet: advance to your usual diet, diabetic diet, low fat, low cholesterol Interval History: See 04/30/2017 progress note for interval history Hospital course: See assessment and plan for hospital course - Time Spent with Patient Total time spent providing and/or coordinating discharge services: - Constitutional Vitals: Temp Pulse Resp BP Pulse Ox 99.4 F 71 18 114/70 95 04/30/17 14:34 04/30/17 16:32 04/30/17 14:34 04/30/17 14:34 04/30/17 14:34 General appearance: Present: cooperative, A&O X 3, pleasant, no acute distress, obese, answers questions appropriately - Head Head exam: Present: atraumatic, normocephalic - Eye Eye exam: Present: PERRL, conjuntiva pink, sclera anicteric Pupils: Present: PERRL - Neck Neck exam general surgery: Present: supple, trachea midline. Absent: lymphadenopathy - Respiratory Respiratory exam: Present: CTAB. Absent: accessory muscle use, rales, rhonchi, wheezes - Cardiovascular Cardiovascular exam: Present: RRR, +S1, +S2. Absent: diastolic murmur, gallop, rubs, systolic murmur - GI/Abdominal GI/Abdominal exam: Present: normal bowel sounds, soft, no peritoneal signs. Absent: distended, tenderness - Extremities Exam Extremities exam: Present: warm, radial pulses palpable and symmetrical. Absent : calf tenderness, cyanotic, pedal edema - Neurological Exam Neurological exam: Present: CN II-XII intact, oriented X3, no focal deficits. Absent: pronater drift, facial droop, speech deficit - Skin Skin exam: Present: dry, intact
--- NOTE | 2017-05-01 11:03 | Electrocardiograph Report ---
[place] [id number] Test Date: 2017-04-29 Pat Name: Chiquita Lopez Department: 104 Room: 3B23 Gender: F Image Assembler: AMADOU : 1950 Requested By: Deysi See Order Number: [id number] Reading MD: Ani Mendez Measurements Intervals [place] Rate: 62 P: 47 [place]: 182 QRS: 21 QRSD: 89 T: 42 QT: 414 QTc: 420 Interpretive Statements SINUS RHYTHM NONSPECIFIC T-WAVE ABNORMALITY Electronically Signed On 05-01-2017 11:01:50 EDT by Ani Mendez
== END 2017-04-30 17:37 | disposition home or self-care (01) ==
LOC: EMEROO 13:44 → 3BNU 13:44
PROVIDERS: ADMIT Hospitalist; ATTEND Registered Nurse